=== PATIENT | male | born 1980 | race Caucasian/White ===

== ENCOUNTER 2017-11-29 17:36 | Emergency (ER) | payer SELFPAY ==
[2017-11-29 17:43] VITALS: BP 117/69; PULSE 94; RESP 18; TEMP 36.7; O2SAT 99; BMI 23.0
--- NOTE | 2017-11-29 18:16 | CT_ITS ---
CT lumbar spine wo con INDICATION: Low back pain following lifting injury ITS.REASON: Pain after lifting something ORDERING PHYSICIAN: Tasneem Marte MD PATIENT AGE: 37 years COMPARISON: None TECHNIQUE: Axial images are obtained without contrast. Sagittal and coronal reformatted images are reviewed as well. FINDINGS: There is normal alignment. No obvious fracture or dislocation evident. No lytic or blastic change. There is slight decrease in height in the left parasagittal region at L3 endplate of questionable clinical significance and may be developmental. Minimal bulging disc at L3-L4, L4-5, and L5-S1. MRI suggested for more thorough evaluation of the disc spaces of clinically warranted. No bony canal stenosis. IMPRESSION: 1. No acute displaced fracture. Minimal loss of height of L3 endplate superiorly on the left of questionable clinical significance and may be better evaluated with MRI if clinically warranted 2. Mild bulging disc L3-L4, L4-L5, and L5-S1. Consider MRI for more thorough evaluation if clinically warranted.
--- NOTE | 2017-11-29 18:21 | HMH.EDGENADL ---
ED Disposition Clinical Impression: Low back pain Qualifiers: Chronicity: acute Back pain laterality: midline Sciatica presence: without sciatica Qualified Code(s): M54.5 - Low back pain Disposition: Home, Self-Care Condition on Discharge: Good Instructions: DI for Acute Pain -- Adult Additional Instructions: Naproxen, see your family doctor in two to five days for recheck Prescriptions: Naproxen [EC-Naprosyn] 500 mg PO BID PRN #20 tablet.dr MORENO Reason: Pain - Critical Care Critical Care Time: No Attestation: On 11/29/17, the high probability of a clinically significant, sudden or life threatening deterioration of the following system(s) required my full and direct attention, intervention and personal management. The time I documented below is in addition to time spent performing reported procedures but includes the following listed in this critical care notation. Medical Decision Making Vital Signs: 11/29/17 17:43 11/29/17 19:37 Temperature 98.0 F Temperature Source Temporal Artery Scan Pulse Rate [Right Brachial] 94 H 104 H Respiratory Rate 18 Blood Pressure [Right Arm] 117/69 111/74 Blood Pressure Mean [Right Arm] 85 86 Blood Pressure Source [Right Arm] Automatic Cuff Automatic Cuff Blood Pressure Position [Right Arm] Sitting Sitting 02 Sat by Pulse Oximetry 99 98 Oxygen Delivery Method Room Air Room Air Orders (Tests/Meds): ORDERS Category Date Time Status CT lumbar spine wo con Stat Cat Scan 11/29/17 18:16 Taken - CT Data CT Scan: L-Spine Time Received: 20:[address] Reviewed: Yes: I have viewed the radiologist's interpretation Preliminary Findings: Normal/NAD Findings Narrative: neg acute, although DJD and foraminal narrowing noted. - Familia Inquiry Pt receiving controlled substance: No General Adult HPI - General Chief complaint: PAIN Stated complaint: AO .29 Lower Back Pain after heavy lifting Time Seen by Provider: 11/29/17 18:10 Mode of Arrival: Ambulatory Limitations: No Limitations Description of Symptoms (Recalled from ER Triage Doc. by RN): lifted something heavy and injured lumbar and sacrum - History of Present Illness HPI narrative: history of coccyx fracture. States lifted heavy object 2 days ago, not work-related, and since that time has felt a catch in his mid lumbar spine. No loss of bowel or bladder function. No abdominal pain. He took ibuprofen 4 hours prior to arrival. Onset (ago): day(s) (2) Radiation: non-radiation Severity: moderate Quality: constant Consistency: constant Relieving factors: immobilization Exacerbating factors: movement Associated symptoms: denies other symptoms Treatments prior to arrival: NSAID - Related Data Previous Rx's Medication Instructions Recorded Naproxen [EC-Naprosyn] 500 mg PO BID PRN #20 tablet. 11/29/17 Allergies Allergy/AdvReac Type Severity Reaction Status Date / Time No Known Allergies Allergy Verified 11/29/17 18:15 [facility] History - *Social History Alcohol Intake: never - Psychiatric History Expresses thoughts of harming self/others: None Suicide Plan Description: No Plan ROS Obtained: Yes All systems reviewed & no additional complaints Physical Exam - General General appearance: alert, in no apparent distress - Head Head exam: atraumatic - Eye Eye exam: Present: normal appearance, PERRL, EOMI - Neck Neck exam: Present: normal inspection, full ROM, trachea midline. Absent: meningismus, lymphadenopathy - Chest Chest inspection: Present: normal inspection, symmetric chest wall rise. Absent: tenderness - Respiratory Respiratory exam: Present: normal lung sounds bilaterally. Absent: respiratory distress - Cardiovascular Cardiovascular exam: Present: regular rate, normal rhythm. Absent: JVD - Abdominal Exam Abdominal exam: Present: soft, normal bowel sounds. Absent: distention, tenderness, guarding - Back Exam Back exam: Present: normal inspection, ful
--- NOTE | 2017-11-29 18:24 | ED_ITS ---
ED Disposition Clinical Impression: Low back pain Qualifiers: Chronicity: acute Back pain laterality: midline Sciatica presence: without sciatica Qualified Code(s): M54.5 - Low back pain Disposition: Home, Self-Care Condition on Discharge: Good Instructions: DI for Acute Pain -- Adult Additional Instructions: Naproxen, see your family doctor in two to five days for recheck Prescriptions: Naproxen [EC-Naprosyn] 500 mg PO BID PRN #20 tablet.dr MORENO Reason: Pain - Critical Care Critical Care Time: No Attestation: On 11/29/17, the high probability of a clinically significant, sudden or life threatening deterioration of the following system(s) required my full and direct attention, intervention and personal management. The time I documented below is in addition to time spent performing reported procedures but includes the following listed in this critical care notation. Medical Decision Making Vital Signs: 11/29/17 17:43 11/29/17 19:37 Temperature 98.0 F Temperature Source Temporal Artery Scan Pulse Rate [Right Brachial] 94 H 104 H Respiratory Rate 18 Blood Pressure [Right Arm] 117/69 111/74 Blood Pressure Mean [Right Arm] 85 86 Blood Pressure Source [Right Arm] Automatic Cuff Automatic Cuff Blood Pressure Position [Right Arm] Sitting Sitting 02 Sat by Pulse Oximetry 99 98 Oxygen Delivery Method Room Air Room Air Orders (Tests/Meds): ORDERS Category Date Time Status CT lumbar spine wo con Stat Cat Scan 11/29/17 18:16 Taken - CT Data CT Scan: L-Spine Time Received: 20:[address] Reviewed: Yes: I have viewed the radiologist's interpretation Preliminary Findings: Normal/NAD Findings Narrative: neg acute, although DJD and foraminal narrowing noted. - Familia Inquiry Pt receiving controlled substance: No General Adult HPI - General Chief complaint: PAIN Stated complaint: AO .29 Lower Back Pain after heavy lifting Time Seen by Provider: 11/29/17 18:10 Mode of Arrival: Ambulatory Limitations: No Limitations Description of Symptoms (Recalled from ER Triage Doc. by RN): lifted something heavy and injured lumbar and sacrum - History of Present Illness HPI narrative: history of coccyx fracture. States lifted heavy object 2 days ago, not work- related, and since that time has felt a catch in his mid lumbar spine. No loss of bowel or bladder function. No abdominal pain. He took ibuprofen 4 hours prior to arrival. Onset (ago): day(s) (2) Radiation: non-radiation Severity: moderate Quality: constant Consistency: constant Relieving factors: immobilization Exacerbating factors: movement Associated symptoms: denies other symptoms Treatments prior to arrival: NSAID - Related Data Previous Rx's Medication Instructions Recorded Naproxen [EC-Naprosyn] 500 mg PO BID PRN #20 tablet. 11/29/17 Allergies Allergy/AdvReac Type Severity Reaction Status Date / Time No Known Allergies Allergy Verified 11/29/17 18:15 [facility] History - *Social History Alcohol Intake: never - Psychiatric History Expresses thoughts of harming self/others: None Suicide Plan Description: No Plan ROS Obtained: Yes All systems reviewed & no additional complaints Physical Exam - General General appearance: alert, in no apparent distress - Head Head exa
[2017-11-29 19:37] VITALS: BP 111/74; PULSE 104; O2SAT 98
[2017-11-29 20:25] VITALS: BP 106/68; PULSE 90; RESP 20
== END 2017-11-29 20:25 | disposition home or self-care (01) ==
PROVIDERS: Emergency Provider Emergency Medicine
DX: M54.5 Low back pain (principal); X50.0XXA Overexertion from strenuous movement or load, initial encounter; Y92.9 Unspecified place or not applicable
CPT/HCPCS: 72131; 99283

== ENCOUNTER 2022-11-07 22:25 | Inpatient (IN) | payer OTHER, SELFPAY ==
--- NOTE | 2022-11-07 22:32 | XR_ITS ---
PROCEDURE INFORMATION: Exam: XR Chest Exam date and time: 11/07/2022 10:55 PM Age: 42 years old Clinical indication: Sternal or substernal pain and left-sided; Prior surgery; Surgery type: Cardiac stent; Patient HX: Smoker; Additional info: Chest pain TECHNIQUE: Imaging protocol: Radiologic exam of the chest. Views: 1 view. COMPARISON: CR CXR2V XR chest 2V 07/19/2018 12:29 PM FINDINGS: Lungs: Unremarkable. No consolidation. Pleural spaces: Unremarkable. No pleural effusion. No pneumothorax. Heart/Mediastinum: Unremarkable. No cardiomegaly. Bones/joints: Unremarkable. IMPRESSION: No acute findings.
--- NOTE | 2022-11-07 22:32 | PC.NURSE ---
pt arrived to floor with ems at this time
--- NOTE | 2022-11-07 22:37 | ECG_ITS ---
APPROVED REPORT Exam: Resting ECG HR:73 bpm ECG Measurements Heart Rate 73 AXES [place] 162 P 52 QRSd 98 QRS 47 QT 374 T -88 QTc 400 Conclusion SINUS RHYTHM INFERIOR MYOCARDIAL INFARCTION , OF INDETERMINATE AGE [40+ ms Q WAVE AND/OR ST/T ABNORMALITY IN II/aVF] PROBABLE ANTEROLATERAL MYOCARDIAL INFARCTION , OF INDETERMINATE AGE [35 ms Q WAVE IN I/aVL/V3-V6] ABNORMAL ECG UNCONFIRMED REPORT Electronically signed by : Roger Boles MD 11/08/2022 10:16:30
[2022-11-07 22:38] VITALS: BMI 30.4
[2022-11-07 23:00] VITALS: BP 98/68; PULSE 75; RESP 16; O2SAT 95
--- NOTE | 2022-11-07 23:01 | EXP.HP ---
History of Present Illness *Admission Date: 11/07/22 *Reason for visit:: Chest pain *History of present illness: this is a 42-year-old male with past medical history of tobacco abuse, CAD with PCI in 2019 at who presents as a transfer from [facility] for further evaluation of chest pain. He reports intermittent chest pain over the past week with acutely worsening pain today. He reports left-sided chest pain crushing in nature with radiation to left jaw and left arm. He also endorses mild nausea and diaphoresis. He reports that this is similar pain to his previous NV. He was seen at [facility] emergency department earlier this week for similar complaints and discharged home after aspirin and nitro. He presented back today to [facility] emergency department for similar complaints But pain this time was unrelenting. He does not follow with cardiology in [facility]. He endorses heart failure and is on Entresto but denies any new shortness of breath or peripheral edema. EKG at outside hospital without acute ST elevation but noted changes on EKG. initial troponin of 44 with increased to 80. Dr. Reece with cardiology was consulted and agreed with transfer and cath in a.m. He is admitted to the hospital service for further evaluation management. [facility] Disclaimer: The information contained in this section may have been updated after the patient was seen, as this information can be updated by other users. Social History (Updated 11/08/22 @ 00:37 by Ada Squires RN) Smoking Status: Current every day smoker tobacco type: cigarettes alcohol intake: never current occupational status: employed and unemployed Travel in the last 8 weeks: None Review of Systems Constitutional Constitutional: Denies chills, Denies excessive sweating, Denies night sweats, Denies weight gain and Denies weight loss Eyes Eyes: Reports system reviewed and no additional complaints, except as documented ENT Ears, Nose, Mouth, and Throat: Reports system reviewed and no additional complaints, except as documented *Cardiovascular Cardiovascular: Reports chest pain, Reports chest pain at rest, Denies dyspnea, Denies lightheadedness and Denies palpitations *Respiratory Respiratory: Reports system reviewed and no additional complaints, except as documented and Denies dyspnea *Gastrointestinal Gastrointestinal: Reports system reviewed and no additional complaints, except as documented *Genitourinary Genitourinary: Reports system reviewed and no additional complaints, except as documented *Musculoskeletal Musculoskeletal: Reports system reviewed and no additional complaints, except as documented Integumentary/Breasts Skin/Breast: Reports system reviewed and no additional complaints, except as documented *Neurologic Neurologic: Reports system reviewed and no additional complaints, except as documented Psychiatric Psychiatric: Reports system reviewed and no additional complaints, except as documented Endocrine Endocrine: Reports system reviewed and no additional complaints, except as documented, Denies excessive sweating and Denies palpitations Meds Home Medications and Allergies Home Medications Medication Instructions Recorded Confirmed Type sacubitril 24 mg-valsartan 26 mg 1 tab PO BID Heart failure 11/07/22 11/07/22 History tablet (Entresto) aspirin 81 mg tablet,delayed 81 mg PO DAILY 30 days #30 tabs 11/08/22 Rx release atorvastatin 80 mg tablet 80 mg PO HS 30 days #30 tabs 11/08/22 Rx nicotine 21 mg/24 hr daily 21 mg transdermal DAILYP PRN 11/08/22 Rx transdermal patch Nicotine Cravings 28 days #28 ea ticagrelor 90 mg tablet (Brilinta) 90 mg PO BID 30 days #60 tabs 11/08/22 Rx New Prescriptions to Start Prescriptions: aspirin Rohan Taylor atorvastatin Rohan Taylor nicotine Rohan Taylor ticagrelor [Brilinta]
[2022-11-07 23:28] LABS: Basophils # 0.1 K/mm3 (0-0.2); Basophils % 1.3 % (0.1-2.0); Eosinophils # 0.6 K/mm3 (0.0-0.4); Eosinophils % 5.8 % (0.1-12.0); Hematocrit 39.6 % (42.0-52.0); Lymphocytes # 4.6 K/mm3 (0.7-4.5); Lymphocytes % 43.1 % (10-50); Mean Corpuscular HGB Conc 32.8 g/dL (31.8-35.4); Mean Corpuscular Hemoglobin 31.3 pg (27.0-31.2); Mean Corpuscular Volume 95.2 fl (80-94); Mean Platelet Volume 7.9 fl (7.4-10.4); Monocytes # 0.5 K/mm3 (0.1-1.0); Monocytes % 4.8 % (1.7-9.3); Neutrophils # 4.8 K/mm3 (1.8-7.8); Platelet Count 328 K/mm3 (142-424); Red Blood Count 4.16 M/mm3 (4.60-6.20); Red Cell Distribution Width 13.3 % (11.5-17.5); White Blood Count 10.6 K/mm3 (4.8-10.8)
[2022-11-07 23:30] LABS: Coronavirus 19, PCR Not Detected (NotDetected); Influenza A, PCR Not Detected (NotDetected); Influenza B, PCR Not Detected (NotDetected)
[2022-11-07 23:31] LABS: Hemoglobin A1C 5.3 % (4.0-6.0)
[2022-11-07 23:41] LABS: Alanine Aminotransferase 16 U/L (12-78); Albumin Level 4.2 g/dl (3.5-5.0); Albumin/Globulin Ratio 1.4 (1.1-1.8); Alkaline Phosphatase 58 U/L (38-126); Aspartate Amino Transferase 32 U/L (17-59); Bilirubin,Total 0.4 mg/dl (0.2-1.3); Blood Urea Nitrogen 19 mg/dl (9-20); Carbon Dioxide 27 mmol/L (22.0-30.0); Chloride 104 mmol/L (98-107); Chol/HDL Ratio 6.8 (1-3.5); Cholesterol 257 mg/dl (140-200); Creatinine Clearance Estimated 137 mL/min (50-200); Estimated Glomerular Filt Rate 82 ml/min (>60); GFR (African American) 99 ML/MIN (>60); Glucose 98 mg/dl (74-100); HDL Cholesterol 38 mg/dl (40-60); Sodium 138 mmol/L (136-145); Total Protein,Serum 7.2 g/dl (6.3-8.2); Triglycerides 115 mg/dl (30-150); VLDL Cholesterol 23 mg/dL (0-40)
[2022-11-07 23:43] LABS: Anion Gap 11.1 mEq/L (5-15); Potassium 4.1 mmoL/L (3.5-5.1)
[2022-11-07 23:47] LABS: PTT Heparin (inpatient only) 27.6 Seconds (23.6-34.0)
[2022-11-07 23:50] LABS: NT Pro Brain Natriuretic Pep. 259 pg/mL (0-125)
[2022-11-07 23:51] LABS: Direct LDL Cholesterol 179.03 mg/dL (100-129)
[2022-11-07 23:58] LABS: Troponin I 0.27 ng/ml (0.00-0.034)
[2022-11-08] VITALS (28 sets, daily range): BP systolic 87–149; BP diastolic 50–106; PULSE 53–129; RESP 15–52; TEMP 36.7–36.8; O2SAT 90–100; BMI 30.7
[2022-11-08 00:06] LABS: Free T4 (Free Thyroxine) 1.33 ng/dl (0.78-2.19)
[2022-11-08 00:12] LABS: Thyroid Stimulating Hormone 1.05 uIU/mL (0.465-4.68)
[2022-11-08 02:45] LABS: Troponin I 0.41 ng/ml (0.00-0.034)
[2022-11-08 05:04] LABS: Basophils # 0.2 K/mm3 (0-0.2); Basophils % 1.9 % (0.1-2.0); Eosinophils # 0.6 K/mm3 (0.0-0.4); Eosinophils % 5.7 % (0.1-12.0); Hematocrit 37.9 % (42.0-52.0); Hemoglobin 12.5 g/dL (14.1-18.0); Lymphocytes # 4.9 K/mm3 (0.7-4.5); Lymphocytes % 50.7 % (10-50); Mean Corpuscular HGB Conc 32.8 g/dL (31.8-35.4); Mean Corpuscular Hemoglobin 31.5 pg (27.0-31.2); Mean Corpuscular Volume 95.8 fl (80-94); Mean Platelet Volume 8.2 fl (7.4-10.4); Monocytes # 0.5 K/mm3 (0.1-1.0); Monocytes % 5.3 % (1.7-9.3); Neutrophils # 3.5 K/mm3 (1.8-7.8); Neutrophils % 36.5 % (37.0-80.0); Platelet Count 291 K/mm3 (142-424); Red Blood Count 3.96 M/mm3 (4.60-6.20); Red Cell Distribution Width 13.3 % (11.5-17.5); White Blood Count 9.6 K/mm3 (4.8-10.8)
--- NOTE | 2022-11-08 05:05 | PC.NURSE ---
Pt currently on Nitro gtt @ 10 mcg/min. Has rested well. CP has been no greater than 2. Heparin gtt infusing per pharmacy management. Pt is currently NPO at this time. Cardiac consult in AM. VSS. Call light within reach.
[2022-11-08 05:15] LABS: MANUAL DIFFERENTIAL MANUAL DIFFERENTIAL (MANUAL DIFF)
--- NOTE | 2022-11-08 06:54 | HMH.PHAINT1 ---
Pharmacy Intervention Comments: MEDICATION RECONCILIATION COMPLETED ON PATIENT USING EXTERNAL FILL HISTORY FROM PHARMACY. -RADHA LEIJA, GIRISHD
[2022-11-08 07:16] LABS: Eosinophils % 4 % (0-3); Lymphocytes % 45 % (10-50); Monocytes % 7 % (2-9); Neutrophils % 44 % (42-76); Platelet Estimate Normal; RBC Morphology Normal; Total Cells Counted 100
--- NOTE | 2022-11-08 07:24 | EXP.CARD.CON ---
History of Present Illness History of Present Illness Consult date: 11/08/22 Requesting physician: Cece Reece Consult reason: chest pain Chief complaint: NSTEMI Additional Medical History:: 1. COPD with continued tobacco use 2. Obstructive sleep apnea with history of BiPAP use 3. Hyperlipidemia 4. Ischemic cardiomyopathy with ejection fraction of 37% per patient A. Systolic congestive heart failure 5. CAD with prior coronary stenting in 2019 History of present illness: 42-year-old white male with prior history of coronary artery disease and stenting in 2019 with ischemic cardiomyopathy and congestive heart failure history presented to [facility] for complaint of sudden onset of anterior chest discomfort with radiation to the neck and left arm. Patient had associated symptoms of diaphoresis, nausea and a sensation of needing to vomit. Evaluation at [facility] showed elevated troponins consistent with non-ST elevation HI. Patient was subsequently transferred here to [facility] for further evaluation and treatment. Chest pain was controlled with combination of nitroglycerin and heparin. Patient is pain-free this morning. Plan to proceed with left heart catheterization today EKG is sinus rhythm with inferior Q waves and T wave inversion. No acute ST segment changes noted. [facility] Disclaimer: The information contained in this section may have been updated after the patient was seen, as this information can be updated by other users. Social History (Updated 11/08/22 @ 00:37 by Ada Squires RN) Smoking Status: Current every day smoker tobacco type: cigarettes alcohol intake: never current occupational status: employed and unemployed Travel in the last 8 weeks: None Review of Systems Review of Systems Review of systems:: pertinent systems reviewed and negative unless documented below *Cardiovascular Cardiovascular: Reports chest pain and Reports dyspnea on exertion *Respiratory Respiratory: Reports dyspnea on exertion *Gastrointestinal Gastrointestinal: Denies abdominal pain and Denies hematochezia *Neurologic Neurologic: Reports system reviewed and no additional complaints, except as documented Exam Data for Last 24 hours Vital signs and Labs for Last 24 Hours: Temp Pulse Resp BP Pulse Ox 98.1 F 61 16 95/61 L 92 L 11/08/22 03:56 11/08/22 05:45 11/08/22 05:45 11/08/22 05:45 11/08/22 05:45 Laboratory Results - last 24 hr 11/07/22 23:00: WBC 10.6, RBC 4.16 L, Hgb 13.0 L, Hct 39.6 L, MCV 95.2 H, MCH 31.3 H, MCHC 32.8, RDW 13.3, Plt Count 328, MPV 7.9, Neut % (Auto) 45.0, Lymph % (Auto) 43.1, Cass % (Auto) 4.8, Eos % (Auto) 5.8, Baso % (Auto) 1.3, Neut # (Auto) 4.8, Lymph # (Auto) 4.6 H, Cass # (Auto) 0.5, Eos # (Auto) 0.6 H, Baso # (Auto) 0.1 11/07/22 23:00: Sodium 138, Potassium 4.1, Chloride 104, Carbon Dioxide 27, Anion Gap 11.1, BUN 19, Creatinine 1.00, Estimated Creat Clear 137, Estimated GFR 82, Est GFR ( Amer) 99, Glucose 98, Calcium 9.0, Total Bilirubin 0.4, AST 32, ALT 16, Alkaline Phosphatase 58, NT-Pro-B Natriuret Pep 259 H, Total Protein 7.2, Albumin 4.2, Globulin 3.0, Albumin/Globulin Ratio 1.4, Triglycerides 115, Cholesterol 257 H, LDL Cholesterol Direct 179.03 H, VLDL Cholesterol 23, HDL Cholesterol 38 L, Cholesterol/HDL Ratio 6.8 H, TSH 1.05 11/07/22 23:00: Free T4 1.33 11/07/22 23:00: Hemoglobin A1c 5.3 11/07/22 23:00: Troponin I 0.27 H 11/07/22 23:00: APTT 27.6 11/07/22 23:00: SARS-CoV-2 (PCR) Not detected, Influenza A Untype (PCR) Not detected, Influenza Type B (PCR) Not detected 11/08/22 01:50: Troponin I 0.41 H 11/08/22 04:50: Troponin I 0.40 H 11/08/22 04:50: WBC 9.6, RBC 3.96 L, Hgb 12.5 L, Hct 37.9 L, MCV 95.8 H, MCH 31.5 H, MCHC 32.8, RDW 13.3, Plt Count 291, MPV 8.2, Neut % (Auto) 36.5 L, Lymph % (Auto) 50.7 H, Cass % (Auto) 5.3, Eos % (Auto) 5.7, Baso % (Auto) 1.9, Neut # (Auto) 3.5, Lymph # (Auto) 4.9 H, Cass # (Auto) 0.5, Eos # (Aut
--- NOTE | 2022-11-08 08:14 | HMH.PHAHEP ---
[facility] Pharmacy Heparin Dosing Demographic Data Admission date:: 11/07/22 Date: 11/08/22 Time: 08:14 Allergies Allergy/AdvReac Type Severity Reaction Status Date / Time No Known Allergies Allergy Verified 11/29/17 18:15 Height: 1.83 m Weight: 103.107 kg Indication Medication therapy:: Heparin Current Indications:: NSTEMI/LOW DOSE PROTOCOL Current Active Problems (Updated 11/07/22 @ 23:11 by RAISSA Vieira) Chronic congestive heart failure (Acute) Tobacco abuse (Acute) HLD (hyperlipidemia) (Acute) NSTEMI (non-ST elevated myocardial infarction) (Acute) CAD (coronary artery disease) (Acute) CVA?: No Bleeding problem?: No Kidney disease?: No [place]?: Yes Desired PTT range:: 50-75 seconds Labs Anticoagulation Lab Results:: 11/07/22 11/08/22 23:00 04:50 Hgb 13.0 L 12.5 L Hct 39.6 L 37.9 L Plt Count 328 291 Monitoring Dose Monitor 1: Date: 11/07/22 Time: 23:14 PTT Result:: 27.6 SECONDS (BASELINE) Infusion Rate:: INITIATE HEPARIN DRIP AT 1000 UNITS/HOUR = 20 ML/HOUR AND BOLUS 4000 UNITS HEPARIN IV ONCE Dose Monitor 2: Date: 11/08/22 Time: 05:01 PTT Result:: 38.0 SECONDS Infusion Rate:: INCREASE HEPARIN DRIP RATE TO 1400 UNITS/HOUR = 28 ML/HOUR AND BOLUS HEPARIN 4000 UNITS IV ONCE. Comment:: DRIP STOPPED 11/08/22 AT 12:32 FOLLOWING HEART CATH PROCEDURE. PATIENT PLACED ON ASPIRIN AND BRILINTA. Core Measures Is INR > or = 2 at discharge?: No Most Recent Labs:: Laboratory Results - last 24 hr 11/07/22 23:00: WBC 10.6, RBC 4.16 L, Hgb 13.0 L, Hct 39.6 L, MCV 95.2 H, MCH 31.3 H, MCHC 32.8, RDW 13.3, Plt Count 328, MPV 7.9, Neut % (Auto) 45.0, Lymph % (Auto) 43.1, Wirt % (Auto) 4.8, Eos % (Auto) 5.8, Baso % (Auto) 1.3, Neut # (Auto) 4.8, Lymph # (Auto) 4.6 H, Wirt # (Auto) 0.5, Eos # (Auto) 0.6 H, Baso # (Auto) 0.1 11/07/22 23:00: Sodium 138, Potassium 4.1, Chloride 104, Carbon Dioxide 27, Anion Gap 11.1, BUN 19, Creatinine 1.00, Estimated Creat Clear 137, Estimated GFR 82, Est GFR ( Amer) 99, Glucose 98, Calcium 9.0, Total Bilirubin 0.4, AST 32, ALT 16, Alkaline Phosphatase 58, NT-Pro-B Natriuret Pep 259 H, Total Protein 7.2, Albumin 4.2, Globulin 3.0, Albumin/Globulin Ratio 1.4, Triglycerides 115, Cholesterol 257 H, LDL Cholesterol Direct 179.03 H, VLDL Cholesterol 23, HDL Cholesterol 38 L, Cholesterol/HDL Ratio 6.8 H, TSH 1.05 11/07/22 23:00: Free T4 1.33 11/07/22 23:00: Hemoglobin A1c 5.3 11/07/22 23:00: Troponin I 0.27 H 11/07/22 23:00: APTT 27.6 11/07/22 23:00: SARS-CoV-2 (PCR) Not detected, Influenza A Untype (PCR) Not detected, Influenza Type B (PCR) Not detected 11/08/22 01:50: Troponin I 0.41 H 11/08/22 04:50: Troponin I 0.40 H 11/08/22 04:50: WBC 9.6, RBC 3.96 L, Hgb 12.5 L, Hct 37.9 L, MCV 95.8 H, MCH 31.5 H, MCHC 32.8, RDW 13.3, Plt Count 291, MPV 8.2, Neut % (Auto) 36.5 L, Lymph % (Auto) 50.7 H, Wirt % (Auto) 5.3, Eos % (Auto) 5.7, Baso % (Auto) 1.9, Neut # (Auto) 3.5, Lymph # (Auto) 4.9 H, Wirt # (Auto) 0.5, Eos # (Auto) 0.6 H, Baso # (Auto) 0.2, Total Counted 100, Neutrophils % (Manual) 44, Lymphocytes % (Manual) 45, Monocytes % (Manual) 7, Eosinophils % (Manual) 4 H, Platelet Estimate Normal, RBC Morphology Normal 11/08/22 04:50: APTT 38.0 H If INR was < than 2.0 why was therapy stopped?: POST-HEART CATH, STARTED ON ASPIRIN AND BRILINTA Were Heparin and Warfarin started on the same day?: No If not, why?: POST-HEART CATH, STARTED ON ASPIRIN AND BRILINTA
--- NOTE | 2022-11-08 08:17 | ECG_ITS ---
APPROVED REPORT Exam: Resting ECG HR:67 bpm ECG Measurements Heart Rate 67 AXES [place] 168 P 49 QRSd 94 QRS 27 QT 410 T -42 QTc 426 Conclusion SINUS RHYTHM Old anterolateral changes INFERIOR MYOCARDIAL INFARCTION, old changes ABNORMAL ECG UNCONFIRMED REPORT Electronically signed by : Roger Boles MD 11/08/2022 10:14:27
--- NOTE | 2022-11-08 10:25 | IR_ITS ---
APPROVED REPORT Patient Location: Inpatient Human Resources Intern: GIANLUCA John RT (R) PROCEDURES Left heart catheterization Left ventriculogram Selective coronary angiogram Drug-eluting stent deployment to the proximal LAD INDICATION Acute non-ST elevation myocardial infarction Informed consent was obtained prior to the procedure. COMPLICATIONS None Estimated Blood Loss: Less than 10 mls TECHNIQUE One percent lidocaine used to anesthetize the right anterior aspect of the wrist. The right radial artery was accessed via the Seldinger technique. A 6 Armenian sheath was placed in the right radial artery. 2.5 mg of verapamil, 800 mcg of nitroglycerin, 1mg Lidocaine and 5000 U Heparin were given through the arterial sheath. The papa catheter was also used to perform left heart catheterization, left ventriculogram and selective coronary angiogram. At the end the diagnostic angiogram therapeutic heparin was administered giving a therapeutic ACT and the guide catheter was placed in the left main artery followed by a Choice PT extra-support wire. A 4 mm x 15 mm resolute Tank stent was deployed at 16 tika reducing the severe proximal LAD stenosis to 0%. At the end of the procedure the sheath was removed and hemostasis was achieved using TR banding patient was transferred to the postop putting in stable condition. UMAIR-3 flow was present before and after the procedure ANGIOGRAPHIC RESULTS The left main artery Normal The left anterior descending artery Has a proximal concentric 70 to 80% stenosis followed by an additional proximal to mid vessel 50% stenosis immediately adjacent to a large first diagonal artery. The remaining vessel has mild luminal irregularities The circumflex artery Is a large dominant vessel and has a stent in the mid segment which is widely patent with mild in-stent restenosis. First obtuse marginal artery originates from within the stent and is jailed. There is an ostial 80 to 90% stenosis accompanied by UMAIR-3 flow The right coronary artery Nondominant with a proximal 30 to 40% stenosis The ORTIZ ventriculogram reveals Dilated ventricle ejection fraction 30 to 35% The left ventricular end-diastolic pressure 20 mmHg IMPRESSION Severe proximal LAD disease as described above with persistent moderate disease in the proximal to mid LAD as described above Jailed first obtuse marginal artery which is likely chronic Dilated ventricle with reduced ejection fraction Mildly elevated LVEDP PLAN 1. Dual antiplatelet therapy 2. Medical management for the LAD stenosis at this time. This would be a bifurcating stent involving a large diagonal artery and the LAD. This will likely respond to high intensity statin along with tobacco cessation and risk factor modification 3. LDL less than 55 to be achieved with high intensity statin 4. Cardiac rehabilitation 5. Consider stress Lexiscan in 6 weeks to evaluate the proximal to mid LAD stenosis 6. Avoidance of tobacco products 7. Consideration of LifeVest Electronically signed by : Phi Reece MD 11/08/2022 12:52:49
[2022-11-08 12:06] LABS: CATHL Activated Clotting Time 302 SEC (74-125)
--- NOTE | 2022-11-08 12:38 | PC.NURSE ---
off unit to laboratory engineer from 1215 to 1238. received report from deedee Spicer Rn at [id number]
--- NOTE | 2022-11-08 12:40 | PC.NURSE ---
clarified with karena brown at this time if pt was to continue heparin and nitro drip. per karena brown, shae reaganips
--- NOTE | 2022-11-08 12:40 | PC.NURSE ---
late entry: 0830 order received from karena brown for tylenol 650mg po q6h prn for headach
--- NOTE | 2022-11-08 14:45 | CA_ITS ---
APPROVED REPORT EXAM: Comprehensive 2D, Doppler, and color-flow Echocardiogram [employer]roomcorn Thresher: Nimisha Steele CRT Ht: 6 ft 0 in Wt: 227lbs BSA: 2.25 BP: 95/61 mmHg Indications: Congestive Heart Failure, Non STEMI, CAD, Cardiomyopathy 2D Dimensions LVOT 2.05 cm (M/F) 1.5-2.5 LA Volume 36.30 mL LA Volume Index 15.80 mL/m2 (M/F) 16-34 M-Mode Dimensions RVDd 2.14 cm (0.9-2.6) LA Diam 3.62 cm (1.9-4.0) LVDd 6.21 cm (3.5-5.7) Ao Diam 4.09 cm (2.0-3.7) LVDs 5.03 cm (3.5-5.7) IVSd 0.89 cm (0.6-1.1) PWd 0.96 cm (0.6-1.1) EF (Teich) 38.40% FS 19.00% EDV (Teich) 194.70 mL TAPSE 2.54 (<1.7) ESV (Teich) 119.90 mL LV Diastology E Decel Time 237.00 (160-240 msec) E/A Ratio 0.86 MED E' 7.60 (< 7 cm/sec) MED A' 9.20 cm/s E'/MED E' Ratio 10.05 (>14) LAT E' 7.90 (<10 cm/sec) LAT A' 9.20 cm/s E/LAT E' Ratio 9.67 (>14) Aortic Valve AO Peak GR. 7.30 mmHg Mitral Valve MV A Velocity 89.00 (40-130 cm/s) E/A Ratio 0.86 MV Decel. Time 237.00 (160-240 ms) Pulmonary Valve PV Peak Velocity 159.00 (50-150 cm/s) Tricuspid Valve TR P. Velocity 179.00 cm/s RAP Estimate 10.00 mmHg RVSP 22.80 mmHg Left Ventricle Left atrium is mildly enlarged, left ventricle is normal size, estimated ejection fraction 40 to 45%, there is moderate hypokinesis involving the basal septum inferior and inferior basal wall. Grade 1 diastolic dysfunction seen without tissue Doppler evidence of raise left atrial pressure. Right Ventricle Right atrium and right ventricle are normal size and contractility. Aortic Valve Aortic valve is grossly normal, there is no aortic stenosis aortic insufficiency. Mitral Valve Mitral valve is grossly normal, there is trace mitral regurgitation. Tricuspid Valve Tricuspid grossly normal, there is trace tricuspid regurgitation, tricuspid regurgitation jet velocity is inadequate for calculation of the right ventricular systolic pressure. Pulmonic Valve Pulmonic valve is poorly visualized. Great Vessels Aortic root is normal size. Inferior vena cava is poorly visualized. Pericardium No significant pericardial effusion noted. Conclusion 1. Mildly enlarged left atrium, normal left ventricular size, estimated ejection fraction 40 to 45% with segmental wall motion abnormality described above, grade 1 diastolic dysfunction seen without tissue Doppler evidence of raise left atrial pressure. 2. Trace mitral and tricuspid regurgitation. 3. No significant pericardial effusion. 4. Inferior vena cava is poorly visualized. Electronically signed by : Keyshawn North MD 11/09/2022 13:01:45
--- NOTE | 2022-11-08 15:12 | EXP.DC.SUM ---
General Admission date:: 11/07/22 Discharge date: 11/08/22 HPI HPI HPI: this is a 42-year-old male with past medical history of tobacco abuse, CAD with PCI in 2019 at who presents as a transfer from [facility] for further evaluation of chest pain. He reports intermittent chest pain over the past week with acutely worsening pain today. He reports left-sided chest pain crushing in nature with radiation to left jaw and left arm. He also endorses mild nausea and diaphoresis. He reports that this is similar pain to his previous LA. He was seen at [facility] emergency department earlier this week for similar complaints and discharged home after aspirin and nitro. He presented back today to [facility] emergency department for similar complaints But pain this time was unrelenting. He does not follow with cardiology in [facility]. He endorses heart failure and is on Entresto but denies any new shortness of breath or peripheral edema. EKG at outside hospital without acute ST elevation but noted changes on EKG. initial troponin of 44 with increased to 80. Dr[address] Reece with cardiology was consulted and agreed with transfer and cath in a.m. He is admitted to the hospital service for further evaluation management. Hospital Course Hospital Course Hospital Course: 42 yo M who presented to [facility] with chest pain. found to have an NSTEMI, transferred to [facility] for further management. NSTEMI CAD, chronic HLD HFrEF Patient transferred to [facility] for cardiology consult. EKG obtained with no ST elevation. Troponins elevated on arrival. Patient managed on a nitroglycerin gtt overnight with resolution of chest pain. Cardiology evaluated in the morning with planned left heart cath. On evaluation the following findings and treatment performed: 1. Dual antiplatelet therapy 2. 80% proximal LAD stenosis treated with one JET. mid to distal LAD stenosis of 50% with recommendation for medical management given location and that it would require a bifurcating stent involving a large diagonal artery and the LAD. ?This will likely respond to high intensity statin along with tobacco cessation and risk factor modification 3. LDL less than 55 to be achieved with high intensity statin 4. Cardiac rehabilitation 5. Consider stress Lexiscan in 6 weeks to evaluate the proximal to mid LAD stenosis 6. Avoidance of tobacco products Echo obtained with preliminary EF >35%. Cardiac medications at [place]: - continue 81 mg aspirin daily - continue Brilinta 90mg BID - Lipitor 80mg daily - Entresto 24/26mg BID Tobacco abuse Smokes 1/2 pk/day, down from 1-2 pks a day. Counseled on need to stop smoking and risk if he continues to smoke. Prescribed Nicotine patch at discharge. Close follow-up with cardiology in 2 weeks for re-evaluation. Meds provided via [facility] prior to DC home. Exam Data for Last 24 hours Vital signs and Labs for Last 24 Hours: Temp Pulse Resp BP Pulse Ox 98.1 F 69 22 104/62 L 91 L 11/08/22 11:09 11/08/22 13:45 11/08/22 13:45 11/08/22 13:45 11/08/22 13:45 Laboratory Results - last 24 hr 11/07/22 23:00: WBC 10.6, RBC 4.16 L, Hgb 13.0 L, Hct 39.6 L, MCV 95.2 H, MCH 31.3 H, MCHC 32.8, RDW 13.3, Plt Count 328, MPV 7.9, Neut % (Auto) 45.0, Lymph % (Auto) 43.1, [place] % (Auto) 4.8, Eos % (Auto) 5.8, Baso % (Auto) 1.3, Neut # (Auto) 4.8, Lymph # (Auto) 4.6 H, [place] # (Auto) 0.5, Eos # (Auto) 0.6 H, Baso # (Auto) 0.1 11/07/22 23:00: Sodium 138, Potassium 4.1, Chloride 104, Carbon Dioxide 27, Anion Gap 11.1, BUN 19, Creatinine 1.00, Estimated Creat Clear 137, Estimated GFR 82, Est GFR ( Amer) 99, Glucose 98, Calcium 9.0, Total Bilirubin 0.4, AST 32, ALT 16, Alkaline Phosphatase 58, NT-Pro-B Natriuret Pep 259 H, Total Protein 7.2, Albumin 4.2, Globulin 3.0, Albumin/Globulin Ratio 1.4, Triglycerides 115, Cholesterol 257 H, LDL Cholesterol Direct 179.03 H, VLDL Cholesterol 23, HDL Cholesterol 38 L, Cholesterol/HDL Ratio
--- NOTE | 2022-11-08 16:03 | P.CONPHA_ITS ---
MERGED WITH [facility] Occupational Therapy Professor Discharge Med Food Mixer Assembler: Ceasar Encarnacion has received discharge medication counseling on the following medications: aspirin 81 mg, Brilinta, Entresto, and atorvastatin 80 mg, as well as his new nicotine patch. Overviewed indications, possible adverse effects, and mitigation strategies for each. Instructed patient to STOP atorvastatin 20 mg and nitroglycerin. Per MD beta alexandro will be held 2/2 hypotension until follow-up w/ Cardiology 2/2. Patient, with family at bedside, verbalized understanding of information provided and had no questions or concerns at this time. -Rekha Fish, PharmD Candidate 2022
--- NOTE | 2022-11-08 17:09 | PC.NURSE ---
1650 tr band removed, cleansed with cholorhexadine. telfa and tegaderm applied
--- NOTE | 2022-11-09 13:55 | CARE MANAGER ---
Attempted post-discharge phone interview, no answer.
== END 2022-11-08 17:00 | disposition home or self-care (01) | DRG 247 ==
PROVIDERS: Internal Medicine; Nurse Practitioner Acute Care; Admitting Provider Internal Medicine Adolescent Medicine; PCP Nurse Practitioner Family; Visit Provider Internal Medicine Adolescent Medicine
PROC: 027034Z Dilation of Coronary Artery, One Artery with Drug-eluting Intraluminal Device, Percutaneous Approach (ICD-10-PCS; principal; 2022-11-08 09:30)
DX: I21.4 Non-ST elevation (NSTEMI) myocardial infarction (principal); I50.22 Chronic systolic (congestive) heart failure; T82.855A Stenosis of coronary artery stent, initial encounter; F17.210 Nicotine dependence, cigarettes, uncomplicated; E78.5 Hyperlipidemia, unspecified; Z71.6 Tobacco abuse counseling; Y83.1 Surgical operation with implant of artificial internal device as the cause of abnormal reaction of the patient, or of later complication, without mention of misadventure at the time of the procedure; I25.5 Ischemic cardiomyopathy; I25.110 Atherosclerotic heart disease of native coronary artery with unstable angina pectoris; D64.9 Anemia, unspecified
CPT/HCPCS: 36415; 71045; 80053; 80061; 83036; 83880; 84439; 84443; 84484; 85007; 85025; 85347; 85730; 92928; 93005; 93306; 93458; 99152; C1725; C1769; C1876; C9600; C9803; J1644; U0003; U0005